=== PATIENT | female | born 1995 | race Caucasian/White ===

== ENCOUNTER 2022-06-05 12:46 | Observation (INO) ==
[2022-06-05 18:03] LABS: ABS Eosinophils 0.1 10^3/ul (0-0.6); ABS Lymphocytes 1.8 10^3/ul (1.0-4.8); ABS Monocytes 0.4 10^3/ul (0-0.8); ABS Neutrophils 4.6 10^3/ul (1.5-7.7); Eosinophil % 0.9 %; Hematocrit 41 % (35-47); Hemoglobin 13.4 g/dL (12.0-16.0); Lymphocyte % 26.6 %; Mean Corpuscular HGB Conc 33 g/dL (31-36); Mean Corpuscular Hemoglobin 27 pg (27-31); Mean Corpuscular Volume 84 fL (80-97); Mean Platelet Volume 7.8 fL (7.4-10.4); Platelet Count 322 10^3/uL (150-450); Red Blood Count 4.91 10^6 /uL (3.70-4.87); Red Cell Distribution Width 14 % (10-15); White Blood Count 6.9 10^3/uL (3.5-10.8)
[2022-06-05 18:48] LABS: HCG Pregnancy < 0.60 mIU/mL
[2022-06-05 18:59] LABS: Urine Appearance Cloudy; Urine Bilirubin Negative (Negative); Urine Blood 1+ (Negative); Urine Color Yellow; Urine Glucose Negative (Negative); Urine Ketones Trace (Negative); Urine Nitrite Negative (Negative); Urine Protein Negative (Negative); Urine Specific Gravity 1.009 (1.002-1.030); Urine Urobilinogen Negative (Negative)
[2022-06-05 19:00] LABS: Albumin 4.4 g/dL (3.2-5.2)
[2022-06-05 19:03] LABS: Urine Bacteria 1+ (Absent); Urine Red Blood Cell 1+(3-5/hpf) (Absent); Urine White Blood Cell 3+(>20/hpf) (Absent)
[2022-06-05 19:06] LABS: Albumin/Globulin Ratio 1.5 (1-3); C Reactive Protein 12.79 mg/L (<8.01); Total Protein 7.4 g/dL (6.4-8.9)
[2022-06-05 19:10] LABS: ALT 12 U/L (7-52); AST 13 U/L (13-39); Alkaline Phosphatase 63 U/L (35-149); Anion Gap 8 mmol/L (2-11); Blood Urea Nitrogen 5 mg/dL (6-24); CO2 Carbon Dioxide 27 mmol/L (22-32); Calcium 9.3 mg/dL (8.6-10.3); Chloride 101 mmol/L (101-111); Glucose 159 mg/dL (70-100); Potassium 3.8 mmol/L (3.5-5.0); Sodium 136 mmol/L (135-145)
[2022-06-05] MEDS ORDERED: Lidocaine 1% w EPI 1:100,000 MDV 20 ML VIAL INJ ONE (21:11)
[2022-06-05] MEDS ORDERED: Lidocaine 1% w EPI 1:200,000 SDV 30 ML VIAL ONE (21:15)
[2022-06-05 21:47] LABS: Body Fluid Source Cerebral Spinal
[2022-06-05 22:01] LABS: CSF Glucose 73 mg/dL (40-70)
[2022-06-05] MEDS ORDERED: Lidocaine 1% w EPI 1:200,000 SDV 30 ML VIAL INJ ONE (22:02)
[2022-06-05 22:41] LABS: Body Fluid Appearance Clear; Body Fluid Color Colorless; CSF Tube # 4
[2022-06-05] MEDS ORDERED: Cyanocobalamin INJ 1,000 MCG/ML VIAL 1 ML VIAL IM ONE (22:54)
[2022-06-05 22:57] LABS: Body Fluid WBC 0 /mcL
[2022-06-05 23:04] LABS: Body Fluid Total Cells Counted 0
[2022-06-06 00:01] LABS: Vitamin B12 99 pg/mL (180-914)
[2022-06-06] MEDS: Sulfamethox/Trimethoprim DS TAB 800/160 mg PO SCH ×3 (01:10→21:11)
[2022-06-06 06:31] LABS: C Reactive Protein 11.35 mg/L (<8.01); Calcium 8.7 mg/dL (8.6-10.3); Potassium 3.6 mmol/L (3.5-5.0); eGFR CKD-EPI 123.5 (>60)
[2022-06-06 06:38] LABS: ABS Eosinophils 0.1 10^3/ul (0-0.6); ABS Lymphocytes 2.4 10^3/ul (1.0-4.8); ABS Monocytes 0.6 10^3/ul (0-0.8); ABS Neutrophils 3.6 10^3/ul (1.5-7.7); Eosinophil % 1.1 %; Hematocrit 35 % (35-47); Hemoglobin 11.7 g/dL (12.0-16.0); Lymphocyte % 35.7 %; Mean Corpuscular HGB Conc 34 g/dL (31-36); Mean Corpuscular Hemoglobin 28 pg (27-31); Mean Corpuscular Volume 84 fL (80-97); Platelet Count 243 10^3/uL (150-450); Red Blood Count 4.16 10^6 /uL (3.70-4.87); Red Cell Distribution Width 14 % (10-15); White Blood Count 6.7 10^3/uL (3.5-10.8)
[2022-06-06] MEDS: LEVONORGESTREL ETHINYL ESTRAD PO SCH ×2 (11:26→21:11)
[2022-06-06] MEDS ORDERED: Gadoteridol (CONTRAST) 279.3 MG/ML 10 ML IV ONE (20:27)
[2022-06-07] MEDS: Sulfamethox/Trimethoprim DS TAB 800/160 mg PO SCH (08:16)
[2022-06-07] MEDS ORDERED: Ondansetron 4 mg VIAL 2 MG/ML 2 ml VIAL IV ONE (08:48)
[2022-06-07 11:13] VITALS: BP 124/67
[2022-06-07 14:40] LABS: Intrinsic Factor Blocking AB Positive (Negative)
[2022-06-09 16:48] LABS: CSF Oligoclonal Bands 1 bands; Oligoclonal Proteins Interpret 0 bands (<2); Serum Oligoclonal Bands 1 bands
== END 2022-06-07 12:35 | disposition home or self-care (01) ==
LOC: ED 12:46 → EDHOLD 12:46 → SUATTDRO 21:50 → MED 06-06 01:43
PROVIDERS: ADMIT Student in an Organized Health Care Education/Training Program; ATTEND Internal Medicine